=== PATIENT | male | born 1935 | race Caucasian/White ===

== ENCOUNTER 2016-09-04 13:11 | Outpatient (CLI) | payer MEDICARE, OTHER | END 2016-09-04 13:12 | disposition home or self-care (01) | LOC: SC 13:11 | PROVIDERS: ATTEND Internal Medicine Pulmonary Disease | DX: G47.10 Hypersomnia, unspecified (principal); R41.0 Disorientation, unspecified; R26.81 Unsteadiness on feet; R47.9 Unspecified speech disturbances | CPT/HCPCS: 99203; G0463; 99212 ==